=== PATIENT | male | born 1945 ===

== ENCOUNTER 2020-06-04 17:18 | Emergency (ER) | payer OTHER ==
[~2020-06-04] VITALS: Ht 170.2 cm; Wt 79.8 kg
[2020-06-04] MEDS ORDERED: DILTIAZEM ER120 M2 PO (17:31)
[2020-06-04] MEDS ORDERED: FENOFIBRATE134 MG PO (17:31)
[2020-06-04] MEDS ORDERED: ZETIA10 MG PO (17:31)
[2020-06-04] MEDS ORDERED: PLAVIX75 MG PO (17:31)
[2020-06-04] MEDS ORDERED: LASIX20 MG PO (17:31)
[2020-06-04] MEDS ORDERED: NEURONTIN300 MG PO (17:32)
[2020-06-04] MEDS ORDERED: ZOLOFT50 MG PO (17:32)
[2020-06-04] MEDS ORDERED: AVAPRO150 MG PO (17:33)
[2020-06-04] MEDS ORDERED: ATORVASTATIN CA80 MG PO (17:33)
[2020-06-04] MEDS ORDERED: VITAMIN D32400 UNIT/ PO (17:34)
== END 2020-06-04 20:41 | disposition home or self-care (01) ==
LOC: ER 17:18
DX: B34.9 Viral infection, unspecified (principal); N39.0 Urinary tract infection, site not specified